=== PATIENT | male | born 1940 | race Caucasian/White ===

== ENCOUNTER 2024-08-06 11:21 | Emergency (ER) | payer OTHER, SELFPAY ==
[2024-08-06 11:27] VITALS: BP 154/76
--- NOTE | 2024-08-06 14:35 | ED.MUSCINJ ---
HPI-Injury
General
Chief Complaint: Fall
Time Seen by Provider: 08/06/24 14:06
History of Present Illness-Injury
Initial Injury comments:
84-year-old male with history of A-fib presenting to the emergency department after fall. Patient notes that prior to arrival he slipped and fell onto his right shoulder. Denies head injury or loss of consciousness. Denies any prodromal symptoms
such as lightheadedness or dizziness. Denies chest pain or difficulty breathing. He is now unable to move his right upper extremity. Denies numbness or tingling to his extremity. Denies injuries to the shoulder in the past. Took ibuprofen prior
to arrival. Denies additional acute medical complaints
Past History
Past History
ED Past Medical History: Arrthythmia
Social History
Tobacco: Non-smoker
Personal:
Living: with family
Family History
Family History: Other (Noncontributory)
Phy Exam
Physical Exam
Physical Exam:
General: Well-appearing, no clinical signs of dehydration, nontoxic and in no acute distress
HEENT: protecting airway
Head: no trauma
Neck: appears supple
CV: Normal heart rate, regular rhythm
Resp: No accessory muscle use, no increased work of breathing, lungs clear to auscultation bilaterally
Abd: no distension
Extremities: No deformities, no swelling. No tenderness to the right shoulder. No significant ecchymosis. No erythema or warmth. Severely limited motion in abduction. No tenderness to the elbow with range of motion intact at the elbow
Neuro: alert, no focal neurologic deficit
: deferred
Rectal: deferred
Psych: Normal affect
Skin: Intact
Injury Course
Orders/Labs/Results
Orders:
Orders
08/06/24 11:29
Shoulder, Right, Trauma [CR Shoulder, Trauma - Right] Urgent
Comment:
Reason For Exam: fall/trauma
08/06/24 14:34
Acetaminophen [Tylenol] 1,000 mg PO NOW STA
08/06/24 14:35
Sling Right-Treatment ONCE
MDM/Problems Addressed
MDM/Problems Addressed:
84-year-old male presenting to the emergency department for right shoulder pain after a fall. Denies additional injuries. Vital signs significant for mild hypertension.
On exam, patient is in no acute distress, resting comfortably. No significant tenderness of the shoulder joint, however severely limited range of motion in abduction with ultimate concern for fracture versus rotator cuff tear. No significant
deformity would lower suspicion for dislocation. No signs of infection. No neurovascular compromise. Plan for x-ray. Tylenol given for pain.
14:45 - X-ray without fracture, osteoarthritis. At this time continued concern for cuff injury. Ultimately feel stable for discharge. Will place patient in a sling, however cautioned against immobilization. Advised continued supportive therapy
and outpatient orthopedic follow-up. Return precautions discussed.
*Critical Care Note
Total Time (30-74mins, 75-104mins- exclusive of procedures): Not Applicable
ED Attending Note
-
Portions of this chart may have been created with voice recognition software.� Occasional wrong word or��sound alike� substitutions may have occurred due to the inherent limitations of voice recognition software.
Discharge Plan
Departure
Prescriptions:
No Action
amoxicillin 500 MG capsule
500 mg PO ONCE PRN (Reason: pre-procedural)
metoprolol succinate 50 MG tablet extended release 24 hr
50 mg PO QPM
flecainide 100 MG tablet
100 mg PO PRN PRN (Reason: .)
zolpidem 10 MG tablet
10 mg PO HSPRN PRN (Reason: insomnia)
fluticasone propionate 1 SPRAY spray,suspension
2 spray intranasal DAILY PRN (Reason: allergies)
ramipril 10 MG capsule
10 mg PO QPM
rosuvastatin 10 MG tablet
10 mg PO QPM
Meloxicam
aspirin [Adult Low Dose Aspirin] 81 MG tablet,delayed release (DR/EC)
81 mg PO QPM
rivaroxaban [Xarelto] 20 MG tablet
20 mg PO QPM Qty: 10 0RF
Referrals:
Gael Taylor Jr., MD [Family Provider] -
Interventions
Interventions:
*Risk Screen - Suicide Last Done: 08/06/24 11:27
*General Assessment Last Done: 08/06/24 14:40
*Neglect/Abuse Screening Last Done: 08/06/24 11:27
*ED- Fall Risk Assessment Last Done: 08/06/24 14:40
*ED COVID-19 Vaccine History Last Done: 08/06/24 14:40
ED-Musculoskeletal Assessment Last Done: 08/06/24 14:40
ED- Neurological Assessment Last Done: 08/06/24 14:40
ED-Skin Assessment Last Done: 08/06/24 14:41
Discharge Date and Time
Print Language: DIVEHI
[2024-08-06] MEDS: TYLENOL 1000 MG PO (14:42)
== END 2024-08-06 15:25 | disposition home or self-care (01) ==
LOC: EMR 11:21
PROVIDERS: EMERGENCY PHYSICIAN Student in an Organized Health Care Education/Training Program; FAMILY PHYSICIAN Family Medicine
DX: S46.001A Unspecified injury of muscle(s) and tendon(s) of the rotator cuff of right shoulder, initial encounter (principal); M25.511 Pain in right shoulder; W01.0XXA Fall on same level from slipping, tripping and stumbling without subsequent striking against object, initial encounter; I48.91 Unspecified atrial fibrillation
CPT/HCPCS: 99283; 73030

== ENCOUNTER → 2024-08-30 10:05 | Outpatient (REF) | payer OTHER, SELFPAY | LOC: EMG 10:05 | PROVIDERS: ATTENDING PHYSICIAN Orthopaedic Surgery Hand Surgery; FAMILY PHYSICIAN Family Medicine | DX: M25.521 Pain in right elbow (principal) | CPT/HCPCS: 95886; 95910 ==

== ENCOUNTER → 2024-09-14 12:35 | Outpatient (REF) | payer OTHER, SELFPAY ==
[2024-09-14 13:08] LABS: % Basophils 0.5 % (0-2); % Eosinophils 2.9 % (0-6); % Immature Granulocytes 0.1 % (0-0.5); % Monocytes 6.7 % (1.7-9.3); % Neutrophils 50.8 % (42.2-75.2); Absolute Eosinophils 0.2 10^3/uL (0-0.7); Absolute Monocytes 0.5 10^3/uL (0.1-0.6); Hematocrit 43.4 % (39.0-52.0); Hemoglobin 14.3 g/dL (13.0-18.0); Mean Corp Hgb Conc. 32.9 g/dL (33.0-37.0); Mean Corpuscular Hgb 31.6 pg (27.0-31.0); Mean Platelet Volume 9.5 fL (7.4-10.4); Nucleated Red Blood Cells % 0 % (-); Platelet Count 170 10^3/uL (130-400); Red Blood Cell Count 4.52 10^6/uL (4.70-6.10); Red Cell Dist. Width 12.5 % (11.5-14.5); White Blood Cell Count 7.8 10^3/uL (4.8-10.8)
[2024-09-14 13:58] LABS: Blood Urea Nitrogen 19 mg/dl (9-20); Calcium 8.9 mg/dl (8.4-10.2); Carbon Dioxide 27 mmol/L (22-30); Chloride 108 mmol/L (98-107); Glucose 93 mg/dl (70-99); Potassium 5.2 mmol/L (3.5-5.1); Sodium 141 mmol/L (135-145); eGFR > 60.00
== END ==
LOC: REG 12:35
PROVIDERS: ATTENDING PHYSICIAN Orthopaedic Surgery Hand Surgery; FAMILY PHYSICIAN Family Medicine
DX: Z01.818 Encounter for other preprocedural examination (principal)
CPT/HCPCS: 36415; 80048; 85025

== ENCOUNTER → 2024-10-04 11:15 | Outpatient (REF) | payer OTHER, SELFPAY | LOC: RCS 11:15 | PROVIDERS: ATTENDING PHYSICIAN Internal Medicine Cardiovascular Disease; FAMILY PHYSICIAN Family Medicine | DX: I48.91 Unspecified atrial fibrillation (principal) | CPT/HCPCS: 93306 ==